=== PATIENT | male | born 1990 | race African-American/Black ===

== ENCOUNTER 2019-12-21 09:01 | Emergency (ER) | payer OTHER ==
[~2019-12-21] VITALS: Ht 180.3 cm; Wt 93.0 kg
[~2019-12-21 09:01] MED LIST: ALEVE220 M1 PO; AMOX1TAB12 PO; BENTYL10 MG/ML; CEFADROXIL500 MG PO; DOLOGEN CAPLET1 TAB PO; MOTRIN800 MG PO; NASONEX17 GM NS; PERCOCET 5/321 UDTAB PO; PERCOCET 5/3251 TAB PO; ZYRTEC10 MG PO
== END 2019-12-21 13:49 | disposition home or self-care (01) ==
LOC: ER 09:01 → CPU-OBS 09:02 → ER 09:02
DX: R07.89 Other chest pain (principal); F41.8 Other specified anxiety disorders
CPT/HCPCS: G0378; G0379; 93005

== ENCOUNTER 2020-05-11 02:14 | Emergency (ER) | payer OTHER ==
[~2020-05-11] VITALS: Ht 182.9 cm; Wt 90.7 kg
== END 2020-05-11 09:06 | disposition home or self-care (01) ==
LOC: ER 02:14 → CPU-OBS 02:17 → ER 09:06
DX: R00.2 Palpitations (principal); R42 Dizziness and giddiness; R53.1 Weakness
CPT/HCPCS: G0378; G0379; 93005

== ENCOUNTER 2020-05-13 00:09 | Emergency (ER) | payer OTHER ==
[~2020-05-13] VITALS: Ht 182.9 cm; Wt 92.1 kg
[2020-05-13] MEDS ORDERED: VISTARIL50 MG PO (04:06)
[2020-05-13] MEDS ORDERED: CLONAZEPAM0.5 MG PO (04:06)
[2020-05-13] MEDS ORDERED: VISTARIL25 MG (06:34)
== END 2020-05-13 04:25 | disposition home or self-care (01) ==
LOC: ER 00:09
DX: R00.2 Palpitations (principal)